=== PATIENT | female | born 1995 | race Hispanic/Latino ===

== ENCOUNTER 2017-06-18 01:40 | Emergency (ER) | payer OTHER ==
[~2017-06-18] VITALS: Ht 154.9 cm; Wt 54.4 kg
[~2017-06-18 01:40] MED LIST: AUGMENTIN 875-1 EACH PO; PRENATAL ONE T1 EACH; ZANTAC150 MG
[2017-06-18] MEDS ORDERED: ACETAMINOPHEN500 M4 PO (01:51)
[2017-06-18] MEDS ORDERED: PYRIDIUM200 MG PO (02:17)
== END 2017-06-18 02:25 | disposition home or self-care (01) ==
LOC: ED 01:40
DX: R30.0 Dysuria (principal)
CPT/HCPCS: 81001; 99283

== ENCOUNTER 2017-08-23 18:36 | Emergency (ER) | payer OTHER ==
[~2017-08-23] VITALS: Ht 154.9 cm; Wt 54.4 kg
[~2017-08-23 18:36] MED LIST changes: +ACETAMINOPHEN500 M4 PO; +PYRIDIUM200 MG PO
[2017-08-23] MEDS ORDERED: PROMETHAZINE HC25 M1 PO (23:14)
== END 2017-08-24 00:09 | disposition home or self-care (01) ==
LOC: ED 18:36
DX: O20.0 Threatened abortion (principal); Z87.891 Personal history of nicotine dependence; Z79.899 Other long term (current) drug therapy; Z3A.08 8 weeks gestation of pregnancy
CPT/HCPCS: 76801; 76817; 80048; 84702; 84703; 85025; 99284

== ENCOUNTER 2022-01-24 22:58 | Emergency (ER) | payer OTHER ==
[~2022-01-24] VITALS: Ht 154.9 cm; Wt 63.0 kg
[~2022-01-24 22:58] MED LIST changes: +ALDACTONE100 MG PO; +MACROBID 100 M100 MG PO; +PEPCID20 MG PO; +PROMETHAZINE HC25 M1 PO
--- OUTSIDE RECORDS SUMMARY | 2022-01-24 23:06 | XMS ---
PreManage Notification: PENG POLO Security Stitcher Hand Events No recent Security Events currently on file CRITERIA MET - [facility] - 2 Visits in 30 Days - Group Notification CARE PROVIDERS There are no care providers on record at this time. Dasia has no Care Guidelines for this patient. Vika VISIT COUNT (12 MO.) 2 [facility] TOTAL 2 NOTE: Visits indicate total known visits. [facility]12 MO.) [facility] COMPLAINT: - HEADACHE, NAUSEA 12/27/2021 17:13 [facility] [place] TYPE: Emergency COMPLAINT: - UTI SYMPTOMS DIAGNOSES: - Lower abdominal pain, unspecified - Other longwall shearer operator (current) drug therapy - Personal history of nicotine dependence - Urinary tract infection, site not specified INPATIENT VISIT TRACKING (12 MO.) No inpatient visits to display in this time frame [email or web address]
[2022-01-25] MEDS ORDERED: NALTREXONE HCL50 MG PO (00:10)
[2022-01-25] MEDS ORDERED: HYDROXYZINE HCL25 MG PO (00:10)
== END 2022-01-25 03:19 | disposition home or self-care (01) ==
LOC: ED 22:58
DX: G43.909 Migraine, unspecified, not intractable, without status migrainosus (principal); Z87.891 Personal history of nicotine dependence; Z79.899 Other long term (current) drug therapy
CPT/HCPCS: 70450; 96374; 96375; 99283-25; J1200; J1885; J2765; J7030

== ENCOUNTER 2022-10-20 12:49 | Emergency (ER) | payer OTHER ==
[~2022-10-20] VITALS: Ht 154.9 cm; Wt 60.7 kg
[~2022-10-20 12:49] MED LIST changes: +HYDROXYZINE HCL25 MG PO; +NALTREXONE HCL50 MG PO
--- OUTSIDE RECORDS SUMMARY | 2022-10-20 12:56 | XMS ---
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 Vika VISIT COUNT (12 MO.) 3 [facility] TOTAL 3 NOTE: Visits indicate total known visits. ED/UCC VISIT TRACKING (12 MO.) 10/20/2022 12:[address] [facility] [place] TYPE: Emergency COMPLAINT: - MEDICAL CLEARANCE 01/24/2022 22:59 [facility] [place] [place] COMPLAINT: - HEADACHE, NAUSEA DIAGNOSES: - Personal history of nicotine dependence - Headache, unspecified - Other supervisor intermediates (current) drug therapy - Migraine, unspecified, not intractable, without status migrainosus 12/27/2021 17:[address] [facility] [place] TYPE: Emergency COMPLAINT: - UTI SYMPTOMS DIAGNOSES: - Other supervisor intermediates (current) drug therapy - Personal history of nicotine dependence - Lower abdominal pain, unspecified - Urinary tract infection, site not specified INPATIENT VISIT TRACKING (12 MO.) No inpatient visits to display in this time frame [email or web address]
[2022-10-20] MEDS ORDERED: FLUOXETINE HCL40 MG PO (13:06)
[2022-10-21] MEDS ORDERED: CHLORDIAZEPOXID25 MG PO (13:50)
== END 2022-10-21 14:01 | disposition home or self-care (01) ==
LOC: ED 12:49
DX: R45.851 Suicidal ideations (principal); F10.129 Alcohol abuse with intoxication, unspecified; Y90.3 Blood alcohol level of 60-79 mg/100 ml; Z87.891 Personal history of nicotine dependence; Z79.899 Other long term (current) drug therapy
CPT/HCPCS: 36415; 80053; 81001; 84443; 84703; 85025; 96365; 96375; 99284-25; A9270; G0480; J2060; J2405; J3411; J7030